=== PATIENT | female | born 1985 | race Caucasian/White ===

== ENCOUNTER 2022-01-04 11:13 | Emergency (ER) | payer SELFPAY ==
[2022-01-04 11:20] VITALS: BP 115/66; PULSE 80; RESP 19; TEMP 36.8; O2SAT 99; BMI 22.4
--- NOTE | 2022-01-04 11:32 | CA_ITS ---
FINAL REPORT TECHNIQUE: Color Doppler, duplex Doppler and compression sonography of the left lower extremity deep venous systems was performed. CLINICAL HISTORY: RULE OUT BLOOD CLOT. Patient states her left leg began hurting 12/30/21. On 12/31/21 she began receiving health care recruiter for hip and leg pain. She is currently 4 months . Denies trauma. FINDINGS: There is deep venous thrombosis involving the gastrocnemius and soleal veins. The remaining veins of the left lower extremity are patent and compressible. IMPRESSION: Deep venous thrombosis of the gastrocnemius and soleal veins. These findings were communicated to Mara Roy APRN by the generation engineering technologist. Reviewed, Interpreted and Dictated by Sky Martinez III, MD Transcribed by Lincoln Tao Authenticated and . [facility]
--- NOTE | 2022-01-04 11:33 | HMH.EDUTC ---
[facility] Disposition Clinical Impression: DVT (deep vein thrombosis) in , Hypokalemia, Hyponatremia Disposition: Home, Self-Care Condition on Discharge: Fair Instructions: DI for Hypokalemia, DI for Hyponatremia Additional Instructions: Take Lovenox injections every 12 hours. Prescription for the first 5 doses is at clinic pharmacy here to get you through Friday morning. The next prescription can be filled on Friday and is at [facility]. This will get you through the next 2 weeks. Further prescriptions for Lovenox should be obtained through [facility] or [facility] Dr. Vieyra, or country singer Dr. Molina. Please make an appointment to see 1 of these providers for follow-up for further prescriptions and care of your DVT. You will need to remain on Lovenox until 8 weeks after delivery. It is important that you do not have any gaps in treatment with this medication as missing doses increases the risk of pulmonary embolism. You should also see [facility] for [facility] for follow-up of low potassium and low sodium. You should eat potassium rich foods so that you have an intake of at least 40 mEq of potassium a day, see provided list of potassium rich foods. Return to the emergency department if chest pain or shortness of breath or severe swelling or severe pain of left leg. Follow-up with obstetrics as soon as possible for care. Follow-up with [facility] today before 6 or tomorrow between 8 and 1 to sign paperwork for sliding scale. Prescriptions: Enoxaparin Sodium [Lovenox 80mg/0.8mL syringe] 70 mg SQ Q12H #5 each Transmission Status: Received by [facility] Enoxaparin Sodium [Lovenox 80mg/0.8mL syringe] 70 mg SQ Q12H #28 each Transmission Status: Received by [facility] Referrals: Ramandeep Vieyra MD [Staff Physician] - Ney Molina MD [Staff Physician] - Provider,MD Mabel [Primary Care Provider] - As needed Medical Decision Making - Carlos Inquiry Pt receiving controlled substance: No Carlos was queried for this patient: No Vital Signs: 01/04/22 11:20 01/04/22 12:46 01/04/22 13:00 Temperature 98.2 F 99.0 F Temperature Source Oral Oral Pulse Rate 78 Pulse Rate [Right Brachial] 80 72 Respiratory Rate 19 16 Blood Pressure 113/61 Blood Pressure [Right Arm] 115/66 107/61 L Blood Pressure Mean 72 Blood Pressure Mean [Right Arm] 82 76 Blood Pressure Source [Right Arm] Automatic Cuff Automatic Cuff Blood Pressure Position [Right Arm] Sitting Sitting 02 Sat by Pulse Oximetry 99 100 Oxygen Delivery Method Room Air Room Air 01/04/22 13:30 01/04/22 15:48 Temperature 99.0 F Temperature Source Pulse Rate 72 72 Pulse Rate [Right Brachial] Respiratory Rate 16 Blood Pressure 120/58 L 120/58 L Blood Pressure [Right Arm] Blood Pressure Mean 70 Blood Pressure Mean [Right Arm] Blood Pressure Source [Right Arm] Blood Pressure Position [Right Arm] 02 Sat by Pulse Oximetry Oxygen Delivery Method Room Air - Lab Data Lab Results 01/04/22 14:46: WBC 8.9, RBC 3.79 L, Hgb 11.7 L, Hct 33.2 L, MCV 87.8, MCH 30.8, MCHC 35.1, RDW 13.6, Plt Count 368, MPV 7.6, Neut % (Auto) 81.0 H, Lymph % (Auto) 12.9, Brown % (Auto) 3.4, Eos % (Auto) 1.6, Baso % (Auto) 1.0, Neut # (Auto) 7.2, Lymph # (Auto) 1.2, Brown # (Auto) 0.3, Eos # (Auto) 0.2, Baso # (Auto) 0.1 01/04/22 14:46: Sodium 124 L, Potassium 2.4 L*, Chloride 87 L, Carbon Dioxide 27, Anion Gap 12.4, BUN 5 L, Creatinine 0.40 L, Estimated Creat Clear 205, Estimated GFR 179, Est GFR ( Amer) 216, Glucose 135 H, Calcium 8.6 Result diagrams: 01/04/22 14:46 01/04/22 14:46 Orders (Tests/Meds): ED MEDICATIONS Discontinued Medications Generic Name Dose Route Start Last Admin Trade Name Freq PRN Reason Stop Dose Admin Enoxaparin Sodium 70 mg 01/04/22 15:16 01/04/22 15:51 Enoxaparin 100mg/Ml Syringe 1 mg/kg (70 mg) 01/04/22 15:17 70 mg SQ Administration O
--- NOTE | 2022-01-04 12:29 | PC.NURSE ---
PATIENT SENT TO ER PER Genesis ZHANG APRN FOR FURTHER EVALUATION. REPORT GIVEN TO Arnaldo ANTHONY RN BY Genesis ZHANG APRN
[2022-01-04 12:46] VITALS: BP 107/61; PULSE 72; RESP 16; TEMP 37.2; O2SAT 100; BMI 21.5
--- NOTE | 2022-01-04 12:57 | PC.NURSE ---
CRISTINE WILCOX spoke with dr. brizuela in consult on pt
[2022-01-04 13:00] VITALS: BP 113/61; PULSE 78
--- NOTE | 2022-01-04 13:06 | HMH.EDGENADL ---
ED Disposition Clinical Impression: DVT (deep vein thrombosis) in , Hypokalemia, Hyponatremia Disposition: Home, Self-Care Condition on Discharge: Good Instructions: DI for Hypokalemia, DI for Hyponatremia Additional Instructions: Take Lovenox injections every 12 hours. Prescription for the first 5 doses is at clinic pharmacy here to get you through Friday morning. The next prescription can be filled on Friday and is at [facility]. This will get you through the next 2 weeks. Further prescriptions for Lovenox should be obtained through [facility] or [facility] Dr. Vieyra, or bottom worker Dr. Molina. Please make an appointment to see 1 of these providers for follow-up for further prescriptions and care of your DVT. You will need to remain on Lovenox until 8 weeks after delivery. It is important that you do not have any gaps in treatment with this medication as missing doses increases the risk of pulmonary embolism. You should also see [facility] for [facility] for follow-up of low potassium and low sodium. You should eat potassium rich foods so that you have an intake of at least 40 mEq of potassium a day, see provided list of potassium rich foods. Return to the emergency department if chest pain or shortness of breath or severe swelling or severe pain of left leg. Follow-up with obstetrics as soon as possible for care. Follow-up with [facility] today before 6 or tomorrow between 8 and 1 to sign paperwork for sliding scale. Prescriptions: Enoxaparin Sodium [Lovenox 80mg/0.8mL syringe] 70 mg SQ Q12H #5 each Transmission Status: Received by [facility] Enoxaparin Sodium [Lovenox 80mg/0.8mL syringe] 70 mg SQ Q12H #28 each Transmission Status: Sent to [facility] Referrals: Provider,MD Mabel [Primary Care Provider] - As needed Ramandeep Vieyra MD [Staff Physician] - Ney Molina MD [Staff Physician] - - Critical Care Critical Care Time: No Attestation: On 01/04/22, the high probability of a clinically significant, sudden or life threatening deterioration of the following system(s) required my full and direct attention, intervention and personal management. The time I documented below is in addition to time spent performing reported procedures but includes the following listed in this critical care notation. Medical Decision Making - Carlos Inquiry Pt receiving controlled substance: No Vital Signs: 01/04/22 11:20 01/04/22 12:46 01/04/22 13:00 Temperature 98.2 F 99.0 F Temperature Source Oral Oral Pulse Rate 78 Pulse Rate [Right Brachial] 80 72 Respiratory Rate 19 16 Blood Pressure 113/61 Blood Pressure [Right Arm] 115/66 107/61 L Blood Pressure Mean 72 Blood Pressure Mean [Right Arm] 82 76 Blood Pressure Source [Right Arm] Automatic Cuff Automatic Cuff Blood Pressure Position [Right Arm] Sitting Sitting 02 Sat by Pulse Oximetry 99 100 Oxygen Delivery Method Room Air Room Air 01/04/22 13:30 Temperature Temperature Source Pulse Rate 72 Pulse Rate [Right Brachial] Respiratory Rate Blood Pressure 120/58 L Blood Pressure [Right Arm] Blood Pressure Mean 70 Blood Pressure Mean [Right Arm] Blood Pressure Source [Right Arm] Blood Pressure Position [Right Arm] 02 Sat by Pulse Oximetry Oxygen Delivery Method - Lab Data Lab Results 01/04/22 14:46: WBC 8.9, RBC 3.79 L, Hgb 11.7 L, Hct 33.2 L, MCV 87.8, MCH 30.8, MCHC 35.1, RDW 13.6, Plt Count 368, MPV 7.6, Neut % (Auto) 81.0 H, Lymph % (Auto) 12.9, [place] % (Auto) 3.4, Eos % (Auto) 1.6, Baso % (Auto) 1.0, Neut # (Auto) 7.2, Lymph # (Auto) 1.2, [place] # (Auto) 0.3, Eos # (Auto) 0.2, Baso # (Auto) 0.1 01/04/22 14:46: Sodium 124 L, Potassium 2.4 L*, Chloride 87 L, Carbon Dioxide 27, Anion Gap 12.4, BUN 5 L, Creatinine 0.40 L, Estimated Creat Clear 205, Estimated GFR 179, Est GFR ( Amer) 216, Glucose 135 H, Calcium 8.6 Result diagrams: 01/04/22 14:46
--- NOTE | 2022-01-04 13:12 | PC.NURSE ---
went in room to start pt iv and obtain blood work. pt and requested to wait on blood an IV until after speaking with the doctor and discussing treatment options. Offered pt warm blanket, pt declined, states no needs at this time. notified CRISTINE WILCOX
--- NOTE | 2022-01-04 13:14 | PC.NURSE ---
CRISTINE WILCOX at
[2022-01-04 13:30] VITALS: BP 120/58; PULSE 72
--- NOTE | 2022-01-04 13:46 | PC.NURSE ---
CRISTINE WILCOX speaking with dr. early
--- NOTE | 2022-01-04 14:00 | PC.NURSE ---
pt eating lunch tray at this time.
[2022-01-04 15:02] LABS: Anion Gap 12.4 mEq/L (5-15); Basophils # 0.1 K/mm3 (0-0.2); Blood Urea Nitrogen 5 mg/dl (7-17); Calcium 8.6 mg/dl (8.4-10.2); Carbon Dioxide 27 mmol/L (22.0-30.0); Chloride 87 mmol/L (98-107); Creatinine Clearance Estimated 205 mL/min (50-200); Eosinophils # 0.2 K/mm3 (0.0-0.4); Eosinophils % 1.6 % (0.1-12.0); Estimated Glomerular Filt Rate 179 ml/min (>60); GFR (African American) 216 ML/MIN (>60); Glucose 135 mg/dl (74-100); Hematocrit 33.2 % (37.0-47.0); Hemoglobin 11.7 g/dL (12.2-16.2); Lymphocytes # 1.2 K/mm3 (0.7-4.5); Lymphocytes % 12.9 % (10-50); Mean Corpuscular HGB Conc 35.1 g/dL (31.8-35.4); Mean Corpuscular Hemoglobin 30.8 pg (27.0-31.2); Mean Corpuscular Volume 87.8 fl (81-99); Mean Platelet Volume 7.6 fl (7.4-10.4); Monocytes # 0.3 K/mm3 (0.1-1.0); Monocytes % 3.4 % (1.7-9.3); Neutrophils # 7.2 K/mm3 (1.8-7.8); Platelet Count 368 K/mm3 (142-424); Red Blood Count 3.79 M/mm3 (4.20-5.40); Red Cell Distribution Width 13.6 % (11.5-17.5); Sodium 124 mmol/L (136-145); White Blood Count 8.9 K/mm3 (4.8-10.8)
[2022-01-04 15:04] LABS: Potassium 2.4 mmoL/L (3.5-5.1)
--- NOTE | 2022-01-04 15:04 | PC.NURSE ---
notified ER of critical potassium
[2022-01-04 15:48] VITALS: BP 120/58; PULSE 72; RESP 16; TEMP 37.2; O2SAT 100
== END 2022-01-04 15:49 | disposition home or self-care (01) ==
LOC: UTC 11:17 → ER 12:38
PROVIDERS: Emergency Provider Emergency Medicine
DX: O22.30 Deep phlebothrombosis in pregnancy, unspecified trimester (principal); O99.280 Endocrine, nutritional and metabolic diseases complicating pregnancy, unspecified trimester; E87.6 Hypokalemia; E87.1 Hypo-osmolality and hyponatremia; Z79.4 Long term (current) use of insulin; Z3A.16 16 weeks gestation of pregnancy
CPT/HCPCS: 80048; 85025; 93971; 96372; 99284